=== PATIENT | female | born 1985 | race Caucasian/White ===

== ENCOUNTER 2019-04-26 15:33 | Emergency (ER) | payer OTHER ==
[~2019-04-26] VITALS: Wt 62.7 kg
[~2019-04-26 15:33] MED LIST: ACET500C5 PO; FAMO-96 PO; MAG-19 PO; NAPR-985 PO; ONDA4TAB14 PO; [UNRECOGNIZED DRUG - OTHER]
[2019-04-26] MEDS ORDERED: NAPROXEN 500 MG TAB PO ONE (18:30)
[2019-04-26 18:55] VITALS: BP 106/67; PULSE 63; RESP 18
== END 2019-04-26 18:56 | disposition home or self-care (01) ==
LOC: FTE 15:33
DX: N91.2 Amenorrhea, unspecified (principal); R30.0 Dysuria
CPT/HCPCS: 76830; 76856; 80048; 81001; 81025; 84702; 85025; 87086; 87591; Z7502; Z7610; 81003